=== PATIENT | male | born 2005 | race Hispanic/Latino ===

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

== ENCOUNTER 2023-09-18 19:34 | Emergency (ER) | payer OTHER ==
[~2023-09-18] VITALS: Ht 188 cm; Wt 125.2 kg
[~2023-09-18 19:34] MED LIST: CLIN-141 PO
[2023-09-18] MEDS ORDERED: CLIN-141 PO (20:27)
[2023-09-18] MEDS ORDERED: IBUP-2077 PO (20:27)
[2023-09-18 23:22] VITALS: BP 150/79; PULSE 75; RESP 17; O2SAT 96
[2023-09-18] MEDS: CLINDAMYCIN 150 MG CAP PO ONE (23:37)
[2023-09-18] MEDS: IBUPROFEN 800 MG TAB PO ONE (23:39)
== END 2023-09-18 23:41 | disposition home or self-care (01) ==
LOC: EDH 19:34
DX: L05.91 Pilonidal cyst without abscess (principal); J45.909 Unspecified asthma, uncomplicated